=== PATIENT | female | born 1990 | race Caucasian/White ===

== ENCOUNTER 2017-01-28 08:32 | Day surgery (SDC) | payer BC ==
[2017-01-25 09:59] LABS: HEMATOCRIT 42.6 % (36.0-47.0); HEMOGLOBIN 14.5 g/dL (12.0-15.5); HGB HCT DIFFERENCE 0.9; MEAN CORPUSCULAR HGB CONC 34.1 g/dL (32.0-36.0); MEAN CORPUSCULAR VOLUME 88 fl (80-97); RED BLOOD COUNT 4.84 10^6/uL (3.72-5.28); RED CELL DISTRIBUTION WIDTH 13.6 % (11.5-14.0); WHITE BLOOD COUNT 5.6 10^3/uL (4.0-10.5)
[~2017-01-28 08:32] MED LIST: ACETAMINOPHEN 325 MG TABLET PO PRN; CEFAZOLIN 1 GM/D5W RTU 1 GM/50 ML RTUPB IV PRN; LACTATED RINGERS 1000 ML IV PRN; LIDOCAINE 0.5% INJ-PF (5 MG/ML) 50 ML SDV SUBCUT PRN
[2017-01-28] MEDS ORDERED: BUPIVACAINE HCL 0.25 % INJ/PF (2.5 MG/1 ML) 30 ML VIAL ONE (09:56)
[2017-01-28] MEDS ORDERED: FENTANYL CITRATE INJ/PF 100 MCG/2 ML AMPUL ONE ×4 (10:03→12:27)
[2017-01-28] MEDS ORDERED: MIDAZOLAM 2 MG/2 ML INJ ONE (10:04)
[2017-01-28] MEDS ORDERED: PROPOFOL INJ 200 MG/20 ML VIAL IV ONE (10:04)
[2017-01-28] MEDS ORDERED: MORPHINE SULFATE 10 MG/ML INJ ONE (10:04)
[2017-01-28] MEDS ORDERED: PROMETHAZINE HCL INJ 25 MG/1 ML VIAL IV PRN (11:10)
[2017-01-28] MEDS ORDERED: MEPERIDINE HCL/PF INJ 25 MG/1 ML DISP.SYRIN IV PRN (11:10)
[2017-01-28] MEDS ORDERED: FENTANYL CITRATE INJ/PF 100 MCG/2 ML AMPUL IV PRN (11:10)
[2017-01-28] MEDS ORDERED: MORPHINE SULFATE 10 MG/ML INJ IV PRN ×2 (11:10→12:06)
[2017-01-28] MEDS ORDERED: DIPHENHYDRAMINE HCL 50 MG/ML VIAL IV PRN (11:10)
--- NOTE | 2017-01-28 11:50 | PDOC DISCHARGE SUMMARY ---
Discharge Summary (SDC) - Discharge Final Diagnosis: Umbilical hernia Date of Surgery: 01/28/17 Discharge Date: 01/28/17 Condition: Good Treatment or Instructions: Leave abdominal binder while up and active for the next 5 days. May discontinue at night. May remove bulky umbilical dressing in 48 hours. Pain prescription on chart. Follow-up with [facility] Dr. Mathews or SANDRA Guerrero in 1-2 weeks. Discharge Diet: As Tolerated Discharge Activity: No Lifting Over 10 Pounds Home Care Assistance: None Needed Report the Following to Your Physician Immediately: Shortness of Breath, Increase in Pain, Fever over 101 Degrees
--- NOTE | 2017-01-28 11:59 | Operative Report ---
Operative Report DATE OF SURGERY: 01/28/17 PREOPERATIVE DIAGNOSIS: Umbilical hernia POSTOPERATIVE DIAGNOSIS: Same with peritoneal fat OPERATION: Debridement of extraperitoneal fat, primary closure of fascial defect and reinforcement with Covidien Parietex 9 cm diameter mesh intraperitoneal position SURGEON: AGATA HEREDIA ANESTHESIA: GA TISSUE REMOVED OR ALTERED: Preperitoneal fat debrided COMPLICATIONS: None ESTIMATED BLOOD LOSS: Minimal INTRAOPERATIVE FINDINGS: See below PROCEDURE: Patient was taken to the preop holding area the main operating room where general anesthesia was induced. Abdomen was exposed, but extended, the abdomen prepped draped sterile fashion. Of note the patient voided prior to being brought back to the operating room. Instrumentation was set up for laparoscopic hernia repair. Surgical plan and surgical timeout were conducted. Findings were significant for a bulky, exophytic umbilical skin with a sub- continuous mass consistent with hernia. 3 port laparoscopic approach. Skin markings were made, skin anesthetized with quarter percent Marcaine, the left upper quadrant knife wound was made with a #15 blade, Veress needle inserted the peritoneal cavity pneumoperitoneum was established. Veress needle removed, 5 mm and a 5 mm flexible scope was inserted. Under direct visualization 2 additional ports were placed one in the left lower quadrant and one in the right mid field. Her graft findings were significant for omentum stuck to the anterior abdominal wall at the level of the umbilicus. This was taken down using a combination of electrocautery and blunt traction. Now palpated extracorporeally the subcutaneous mass at the umbilicus but we were unable to distinctly see the herniated tissue from the peritoneal side. Therefore the helical defect at the level of the umbilicus was opened by a few millimeters cephalad and caudad allow debridement of the extraperitoneal fat. This was done bluntly. We now had approximately 1- 1.5 cm vessel defect. We opted to close this defect with a single #1 PDS suture and this was affected using the suture passer all done under direct visualization. Significant scar tissue around the umbilicus at the level of the fascia creating a lot of friction to the suture passer. Nonetheless this was formed safely with the securing of the suture thereby closing the fascial defect. We now brought onto the field and 9 cm diameter Covidien Parietex circular mesh, oriented to place sutures at the 12, 3, and 6, and 9:00 positions, moistened with saline, rolled, brought to the anterior abdominal wall 1 of the laparoscopic sites. The mesh was unrolled, and brought up to the intra- abdominal wall using the disposable suture passer. We then came back around a circumferential fashion and placed approximately 12 absorbable tacks. There was no bleeding encountered. Conclusion photos were obtained. Of note we did secure the mesh to the anterior abdominal wall decompressing the peritoneal cavity slightly. At this point felt the operation was complete. Sponge and needle counts correct. All ports removed under direct visualization, pneumoperitoneum evacuated, wounds closed with 3-0 Vicryl benzoin and Steri-Strips. Patient tolerated the procedure well, sedated and taken to recovery room in stable condition.
[2017-01-28] MEDS ORDERED: RINGERS SOLUTION,LACTATED 1,000 ML IV PRN (12:06)
[2017-01-28] MEDS ORDERED: ONDANSETRON HCL INJ/PF 4 MG/2 ML SDV IV PRN (12:06)
[2017-01-28] MEDS ORDERED: NEOSTIGMINE METHYLSULFATE 10 MG/10 ML VIAL ONE (12:42)
[2017-01-28] MEDS ORDERED: GLYCOPYRROLATE INJ 0.4 MG/2 ML VIAL ONE (12:42)
[2017-01-28] MEDS ORDERED: ROCURONIUM BROMIDE INJ 50 MG/5 ML VIAL IV ONE (12:42)
[2017-01-28] MEDS ORDERED: DEXAMETHASONE SOD PHOSPHATE INJ 4 MG/1 ML VIAL ONE (12:42)
[2017-01-28] MEDS ORDERED: ONDANSETRON HCL INJ/PF 4 MG/2 ML SDV ONE (12:42)
[2017-01-28] MEDS ORDERED: LIDOCAINE 2% INJ-PF (20 MG/ML) 2 ML AMPUL ONE (12:42)
[2017-01-28 16:01] VITALS: BP 117/83
== END 2017-01-28 14:40 | disposition home or self-care (01) ==
LOC: OROUT 08:32
PROVIDERS: ATTEND Surgery
PROC: 0WUF0JZ Supplement Abdominal Wall with Synthetic Substitute, Open Approach (ICD-10-PCS; principal; 2017-01-28 10:30)
DX: K42.9 Umbilical hernia without obstruction or gangrene (principal)
CPT/HCPCS: 36415; 85027; 81025; 49585; C1781; J2250; J0690; J3490 ×2; J1100; J3010; J2270; J2405; J2704; 750